=== PATIENT | female | born 1985 | race Caucasian/White ===

== ENCOUNTER 2016-04-12 12:39 | Emergency (ER) | payer MEDICAID ==
[2016-04-12] MEDS ORDERED: ACETAMINOPHEN 325 MG TABLET PO ONE (12:58)
--- NOTE | 2016-04-12 13:00 | ER Document Report ---
ED Medical Screen (RME) - General Stated Complaint: ABDOMINAL PAIN Time seen by provider: 12:56 Mode of Arrival: Ambulatory Information source: Patient Notes: 30-year-old female complaining of low pelvic and back pain since March 16 when she got a very heavy period which has persisted. She has a history of PCO last and has not had menses 6 months prior to February. Dyspareunia 4 days ago. TRAVEL OUTSIDE OF THE [place] IN LAST 30 DAYS: No - Related Data Allergies/Adverse Reactions: No Known Allergies Allergy (Verified 04/12/16 12:55) Past Medical History Psychiatric Medical History: Reports: Hx Anxiety, Hx Attention Deficit Hyperactivity Disorder, Hx Bipolar Disorder, Hx Depression, Hx Post Traumatic Stress Disorder - Immunizations Immunizations up to date: Yes Hx Diphtheria, Pertussis, Tetanus Vaccination: Yes
[2016-04-12 13:53] LABS: ABSOLUTE BASOPHILS # (AUTO) 0.1 10^3/uL (0.0-0.2); ABSOLUTE EOSINOPHILS # (AUTO) 0.1 10^3/uL (0.0-0.6); ABSOLUTE LYMPHOCYTES (AUTO) 1.9 10^3/uL (0.5-4.7); ABSOLUTE MONOCYTES (AUTO) 0.6 10^3/uL (0.1-1.4); ABSOLUTE NEUT (AUTO) 4.1 10^3/uL (1.7-8.2); BASOPHILS % (AUTO) 1.2 % (0-2); EOSINOPHILS % (AUTO) 1.8 % (0-6); HEMATOCRIT 46.4 % (36.0-47.0); HEMOGLOBIN 15.6 g/dL (12.0-15.5); HGB HCT DIFFERENCE 0.4; LYMPHOCYTES % (AUTO) 28.2 % (13-45); MEAN CORPUSCULAR HEMOGLOBIN 32.2 pg (27.0-33.4); MEAN CORPUSCULAR HGB CONC 33.6 g/dL (32.0-36.0); MEAN CORPUSCULAR VOLUME 96 fl (80-97); MONOCYTES % (AUTO) 8.3 % (3-13); RED BLOOD COUNT 4.84 10^6/uL (3.72-5.28); RED CELL DISTRIBUTION WIDTH 13.3 % (11.5-14.0); SEGMENTED NEUTROPHILS % (AUTO) 60.5 % (42-78); WHITE BLOOD COUNT 6.7 10^3/uL (4.0-10.5)
[2016-04-12 14:02] LABS: ALANINE AMINOTRANSFERASE 46 U/L (9-52); ALBUMIN 4.7 g/dL (3.5-5.0); ALKALINE PHOSPHATASE 73 U/L (38-126); ANION GAP 12 (5-19); ASPARTATE AMINO TRANSFERASE 25 U/L (14-36); BILIRUBIN,TOTAL 0.8 mg/dL (0.2-1.3); BLOOD UREA NITROGEN 11 mg/dL (7-20); CALCIUM 9.6 mg/dL (8.4-10.2); CARBON DIOXIDE 27 mmol/L (22-30); CHLORIDE 103 mmol/L (98-107); CREATININE RESULT 0.71 mg/dL (0.52-1.25); GLUCOSE 83 mg/dL (75-110); POTASSIUM 4.3 mmol/L (3.6-5.0); SODIUM 142.2 mmol/L (137-145); TOTAL PROTEIN 7.7 g/dL (6.3-8.2)
[2016-04-12 14:17] LABS: APPEARANCE,URINE SLIGHTLY-CLOUDY; BILIRUBIN,URINE NEGATIVE (NEGATIVE); GLUCOSE, URINE NEGATIVE (NEGATIVE); KETONES,URINE NEGATIVE (NEGATIVE); LEUKOCYTE ESTERASE,URINE NEGATIVE (NEGATIVE); NITRITE,URINE NEGATIVE (NEGATIVE); PROTEIN,URINE NEGATIVE (NEGATIVE); URINE SPECIFIC GRAVITY 1.021; UROBILINOGEN,URINE NEGATIVE mg/dL (<2.0)
--- NOTE | 2016-04-12 16:59 | ER Document Report ---
ED General - General Chief Complaint: Abdominal Pain Stated Complaint: ABDOMINAL PAIN Mode of Arrival: Ambulatory TRAVEL OUTSIDE OF THE [place] IN LAST 30 DAYS: No - HPI Patient complains to provider of: abdominal cramping pelvic pain Notes: Patient coming in for diffuse dominant pain ongoing for the last week vaginal bleeding ongoing since since February and pelvic pain. Patient states she has a history of PCO S states she's to be on metformin however has not followed up with any [employer] since moving here [place] therefore is not taking any medication otherwise has no other past medical history. Patient states pain after sex 4 days ago states pain in her pelvis continues. Denies fevers chills nausea vomiting diarrhea. Denies any trauma - Related Data Allergies/Adverse Reactions: No Known Allergies Allergy (Verified 04/12/16 12:55) Past Medical History - General Information source: Patient - Social History Smoking Status: Never Smoker Chew tobacco use (# tins/day): No Frequency of alcohol use: None Drug Abuse: None Family History: Reviewed & Not Pertinent, Other Patient has suicidal ideation: No Patient has homicidal ideation: No Renal/ Medical History: Denies: Hx Peritoneal Dialysis Psychiatric Medical History: Reports: Hx Anxiety, Hx Attention Deficit Hyperactivity Disorder, Hx Bipolar Disorder, Hx Depression, Hx Post Traumatic Stress Disorder - Immunizations Immunizations up to date: Yes Hx Diphtheria, Pertussis, Tetanus Vaccination: Yes Review of Systems - Review of Systems Constitutional: No symptoms reported EENT: No symptoms reported Cardiovascular: No symptoms reported Respiratory: No symptoms reported Gastrointestinal: Abdominal pain, Nausea, Vomiting Genitourinary: No symptoms reported Female Genitourinary: Vaginal bleeding Musculoskeletal: No symptoms reported Skin: No symptoms reported Hematologic/Lymphatic: No symptoms reported Neurological/Psychological: No symptoms reported -: Yes All other systems reviewed and negative Physical Exam - Vital signs Vitals: Temp Pulse Resp BP Pulse Ox 97.9 F 66 18 113/82 99 04/12/16 17:15 04/12/16 17:15 04/12/16 17:15 04/12/16 17:15 04/12/16 17:15 Interpretation: Normal - General General appearance: Appears well, Alert - HEENT Head: Normocephalic, Atraumatic Eyes: Normal Pupils: PERRL - Respiratory Respiratory status: No respiratory distress Chest status: Nontender Breath sounds: Normal Chest palpation: Normal - Cardiovascular Rhythm: Regular Heart sounds: Normal auscultation Murmur: No - Abdominal Inspection: Normal Distension: No distension Bowel sounds: Normal Tenderness: Nontender Organomegaly: No organomegaly - Back Back: Normal, Nontender - Extremities General upper extremity: Normal inspection, Nontender, Normal color, Normal ROM , Normal temperature General lower extremity: Normal inspection, Nontender, Normal color, Normal ROM , Normal temperature, Normal weight bearing. No: Negar's sign - Neurological Neuro grossly intact: Yes Cognition: Normal Orientation: AAOx4 [employer] Coma Scale Eye Opening: Spontaneous [employer] Coma Scale Verbal: Oriented [place] Coma Scale Motor: Obeys Commands [employer] Coma Scale Total: 15 Speech: Normal Motor strength normal: LUE, RUE, LLE, RLE Sensory: Normal - Psychological Associated symptoms: Normal affect, Normal mood - Skin Skin Temperature: Warm Skin Moisture: Dry Skin Color: Normal Course - Re-evaluation Re-evalutation: 04/12/16 22:27 Patient's ultrasound showed signs of PCO S. No other significant pathology. Lab work showed no significant pathology hemoglobin concentration more likely due to dehydration. Patient will be discharged home recommend follow-up with OB /[facility].The patient presents with abdominal pain without signs of peritonitis or other life-threatening or serious etiology. The patient appears stable for discharge and has been instructed to return immediately if the symptoms worsen in any way, or in 8-12hr if not improved for re-evaluation. The patient has been instructed to return if the symptoms worsen or change in any way.. 04/12/16 22:28 - Vital Signs Vital signs: Temp Pulse Resp BP Pulse Ox 97.9 F 66 18 113/82 99 04/12/16 17:15 04/12/16 17:15 04/12/16 17:15 04/12/16 17:15 04/12/16 17:15 - Laboratory Result Diagrams: 04/12/16 13:25 04/12/16 13:25 Laboratory results interpreted by me: 04/12/16 04/12/16 13:25 13:40 Hgb 15.6 H Urine Blood MODERATE H Discharge - Discharge Clinical Impression: dysfunctional vaginal bleeding, Dehydration Abdominal pain Qualifiers: Abdominal location: generalized Qualified Code(s): R10.84 - Generalized abdominal pain Condition: Good Disposition: HOME, SELF-CARE Instructions: Abdominal Pain ([facility]), Dehydration ([facility]), Dysfunctional Uterine Bleeding ([facility]), Ob-[employer] [facility] Additional Instructions: may take medication for pain as prescribed. Return to the ER symptoms worsen. Your ultrasound labwork today are negative for any critical etiology there is some mild signs of dehydration please drink plenty of water or fluids containing a electrolytes Prescriptions: Dicyclomine HCl [Bentyl 20 mg Tablet] 20 mg PO QID #20 tablet Ondansetron [Zofran Odt 4 mg Tablet] 1 - 2 tab PO Q4H PRN #15 tab.rapdis PRN Reason: For Nausea/Vomiting Referrals: MARY KATE GARIBAY DO [Primary Care Provider] - Follow up in 3-5 days
[2016-04-12 17:29] VITALS: BP 113/82
== END 2016-04-12 17:15 | disposition home or self-care (01) ==
LOC: ER 12:39
DX: N93.8 Other specified abnormal uterine and vaginal bleeding (principal); E86.0 Dehydration; R10.84 Generalized abdominal pain; R10.2 Pelvic and perineal pain
CPT/HCPCS: 99284; 36415; 87086; 84703; 85025; 80053; 81001; 76830; 93976; J3490

== ENCOUNTER 2016-09-26 19:31 | Emergency (ER) | payer MEDICAID ==
[2016-09-26 20:58] LABS: APPEARANCE,URINE CLOUDY; BILIRUBIN,URINE NEGATIVE (NEGATIVE); GLUCOSE, URINE NEGATIVE (NEGATIVE); KETONES,URINE NEGATIVE (NEGATIVE); LEUKOCYTE ESTERASE,URINE MODERATE (NEGATIVE); NITRITE,URINE NEGATIVE (NEGATIVE); PROTEIN,URINE NEGATIVE (NEGATIVE); URINE SPECIFIC GRAVITY 1.025; UROBILINOGEN,URINE NEGATIVE mg/dL (<2.0)
[2016-09-26 21:05] LABS: ABSOLUTE BASOPHILS # (AUTO) 0.1 10^3/uL (0.0-0.2); ABSOLUTE EOSINOPHILS # (AUTO) 0.1 10^3/uL (0.0-0.6); ABSOLUTE LYMPHOCYTES (AUTO) 2.2 10^3/uL (0.5-4.7); ABSOLUTE MONOCYTES (AUTO) 0.9 10^3/uL (0.1-1.4); BASOPHILS % (AUTO) 0.8 % (0-2); EOSINOPHILS % (AUTO) 1.7 % (0-6); HEMATOCRIT 42.4 % (36.0-47.0); HEMOGLOBIN 14.5 g/dL (12.0-15.5); HGB HCT DIFFERENCE 1.1; LYMPHOCYTES % (AUTO) 26.6 % (13-45); MEAN CORPUSCULAR HEMOGLOBIN 31.8 pg (27.0-33.4); MEAN CORPUSCULAR HGB CONC 34.1 g/dL (32.0-36.0); MEAN CORPUSCULAR VOLUME 93 fl (80-97); MONOCYTES % (AUTO) 11.3 % (3-13); RED BLOOD COUNT 4.55 10^6/uL (3.72-5.28); RED CELL DISTRIBUTION WIDTH 13.2 % (11.5-14.0); SEGMENTED NEUTROPHILS % (AUTO) 59.6 % (42-78); WHITE BLOOD COUNT 8.4 10^3/uL (4.0-10.5)
[2016-09-26 21:09] LABS: ALANINE AMINOTRANSFERASE 45 U/L (9-52); ALBUMIN 4.2 g/dL (3.5-5.0); ALKALINE PHOSPHATASE 57 U/L (38-126); ANION GAP 12 (5-19); ASPARTATE AMINO TRANSFERASE 26 U/L (14-36); BILIRUBIN,DIRECT 0.3 mg/dL (0.0-0.4); BILIRUBIN,TOTAL 0.7 mg/dL (0.2-1.3); BLOOD UREA NITROGEN 12 mg/dL (7-20); CALCIUM 9.3 mg/dL (8.4-10.2); CARBON DIOXIDE 22 mmol/L (22-30); CHLORIDE 106 mmol/L (98-107); CREATININE RESULT 0.81 mg/dL (0.52-1.25); GLUCOSE 102 mg/dL (75-110); POTASSIUM 4.2 mmol/L (3.6-5.0); SODIUM 140.4 mmol/L (137-145); TOTAL PROTEIN 7.3 g/dL (6.3-8.2)
[2016-09-26 21:10] LABS: URINE BARBITURATES SCREEN NEGATIVE; URINE METHADONE SCREEN NEGATIVE; URINE OPIATES LOW NEGATIVE; URINE PHENCYCLIDINE SCREEN NEGATIVE
[2016-09-26 21:24] LABS: ALCOHOL < 10 mg/dL (NONE DETECTED)
--- NOTE | 2016-09-26 21:35 | ER Document Report ---
ED General - General Chief Complaint: Suicidal Ideation Stated Complaint: POSSIBLY UNSTABLE MENTAL STATE Time Seen by Provider: 09/26/16 20:16 Notes: Patient is a 31-year-old female multiple prior evaluation this emergency department for suicidality and depression who presents today with suicidal ideation with a plan to cut herself. Patient states that she has had increased stressors in her life recently which have triggered her episode today. She has been off all her medications and feels this may also be contributing to her symptoms. Nothing improves her symptoms. States this feels similar to when she is not suicidal in the past. She was referred here by [facility]. She did make an attempt to harm herself today with self infection of lacerations to her left forearm. TRAVEL OUTSIDE OF THE [place] IN LAST 30 DAYS: No - Related Data Allergies/Adverse Reactions: No Known Allergies Allergy (Verified 04/12/16 12:55) Past Medical History - General Information source: Patient - Social History Smoking Status: Never Smoker Frequency of alcohol use: None Drug Abuse: None Lives with: Family Family History: Reviewed & Not Pertinent, Other Patient has suicidal ideation: Yes Patient has homicidal ideation: No Renal/ Medical History: Denies: Hx Peritoneal Dialysis Psychiatric Medical History: Reports: Hx Anxiety, Hx Attention Deficit Hyperactivity Disorder, Hx Bipolar Disorder, Hx Depression, Hx Post Traumatic Stress Disorder - Immunizations Immunizations up to date: Yes Hx Diphtheria, Pertussis, Tetanus Vaccination: Yes Review of Systems - Review of Systems Notes: Constitutional: Negative for fever. HENT: Negative for sore throat. Eyes: Negative for visual changes. Cardiovascular: Negative for chest pain. Respiratory: Negative for shortness of breath. Gastrointestinal: Negative for abdominal pain, vomiting or diarrhea. Genitourinary: Negative for dysuria. Musculoskeletal: Negative for back pain. Skin: Negative for rash. Neurological: Negative for headaches, weakness or numbness. 10 point ROS negative except as marked above and in HPI. Physical Exam - Vital signs Vitals: Temp Pulse Resp BP Pulse Ox 98.3 F 103 H 16 138/77 H 98 09/26/16 19:37 09/26/16 19:37 09/26/16 19:37 09/26/16 19:37 09/26/16 19:37 Interpretation: Tachycardic Notes: PHYSICAL EXAMINATION: GENERAL: Well-appearing, well-nourished and in no acute distress. HEAD: Atraumatic, normocephalic. EYES: Pupils equal round and reactive to light, extraocular movements intact, sclera anicteric, conjunctiva are normal. ENT: nares patent, oropharynx clear without exudates. Moist mucous membranes. NECK: Normal range of motion, supple without lymphadenopathy LUNGS: Breath sounds clear to auscultation bilaterally and equal. No wheezes rales or rhonchi. HEART: Regular rate and rhythm without murmurs ABDOMEN: Soft, nontender, normoactive bowel sounds. No guarding, no rebound. No masses appreciated. EXTREMITIES: Normal range of motion, no pitting or edema. No cyanosis. NEUROLOGICAL: No focal neurological deficits. Moves all extremities spontaneously and on command. PSYCH: Normal mood, normal affect. SKIN: Warm, Dry, normal turgor, several small superficial lacerations to the right forearm Course - Re-evaluation Re-evalutation: 09/26/16 21:34 Patient presents with suicidal ideation, plan to cut her wrist although self- inflicted wrist wound on the left side is very superficial, does not appear to be any degree of a serious attempt to actually kill herself. Patient reports progressively worsening depression, anxiety, feeling that her life is spiraling out of control. Patient has been seen in the emergency department repeatedly for similar presentations. She was referred by her outpatient psychiatric providers. She denies any additional acute medical complaints. Medical screening laboratories are noted to be unremarkable with exception of her urinalysis which is a contaminated specimen. She does deny dysuria that will not begin treatment at this time instead will plan to send a culture. She is otherwise medically cleared at this time for evaluation by psychiatry. I do not believe she needs involuntary commitment criteria at this time as her suicidality appears quite passive, her wrist cutting today appears to be more of a suicidal gesture than an actual attempt. - Vital Signs Vital signs: Temp Pulse Resp BP Pulse Ox 98.3 F 103 H 16 138/77 H 98 09/26/16 19:37 09/26/16 19:37 09/26/16 19:37 09/26/16 19:37 09/26/16 19:37 - Laboratory Result Diagrams: 09/26/16 20:13 09/26/16 20:13 Laboratory results interpreted by me: 09/26/16 09/26/16 20:13 20:40 Ur Leukocyte Esterase MODERATE H Salicylates < 1.0 L Acetaminophen < 10 L - EKG Interpretation by Me Additional EKG results interpreted by me: 09/27/16 02:50 Normal sinus rhythm. Rate 82. No ST elevations or depressions. QTC is 421. Discharge - Discharge Clinical Impression: Suicidal ideation Depression Qualifiers: Depression Type: major depressive disorder Major depression recurrence: recurrent Active/Remission status: remission status unspecified Qualified Code(s ): F33.9 - Major depressive disorder, recurrent, unspecified Condition: Fair Disposition: PSYCH HOSP/UNIT
--- NOTE | 2016-09-27 09:09 | EKG REPORT ---
SEVERITY:- NORMAL ECG - SINUS RHYTHM : Confirmed by: Leonel Benavides MD 27-Sep-2016 09:09:14
--- NOTE | 2016-09-27 09:51 | ER Document Report ---
Doctor's Note Notes: 09/27/16 09:49 This is a 31-year-old female that presented yesterday with depression and suicidal ideation. Currently, she is alert and oriented 3 and in no acute distress. I have discussed the case with the dust box worker evaluated the patient. The plan will be to have the patient follow-up with psychiatry on an outpatient basis. Note: The patient of some white blood cells in the urine WBCs in the urine but has not had any urinary symptoms: Will wait for results of the urine culture. 09/27/16 10:48
--- NOTE | 2016-09-27 10:35 | ER Document Report ---
ED Psych Disorder / Suicide - General Chief Complaint: Suicidal Ideation Stated Complaint: POSSIBLY UNSTABLE MENTAL STATE Time Seen by Provider: 09/26/16 20:16 TRAVEL OUTSIDE OF THE [place] IN LAST 30 DAYS: No - HPI Notes: Patient is a 31-year-old female multiple prior evaluation this emergency department for suicidality and depression who presents today with suicidal ideation with a plan to cut herself. Patient states that she has had increased stressors in her life recently which have triggered her episode today. She has been off all her medications and feels this may also be contributing to her symptoms. Patient disclosed that her friend brought her into the emergency department. Patient disclosed " I slit my wrist and was having a lot of stress... I had an emotional breakdown with suicidal thoughts." Clinician notes patient has bandage on her wrist; physician report disclosed self-inflicted wrist wound on the left side is very superficial, does not appear to be any degree of a serious attempt to actually kill herself. Patient continued to state that she used to be with [facility] after she got out of the hospital and had 3 months of medication; however, has been not taking medication the last 2-3 months. She continued to state she felt her symptoms are worse so she reached out to "her commercial sales representative" and ended up going to [facility] yesterday. [place] she was [place] the provider thought she needed to come to the emergency department to have her wrist looked at and felt she was not stable to go home. Patient continued to state that she does have a medication appointment in 2 weeks. Patient states she has been inpatient psychiatric treatment approximately 4 times with the last one being up about 1 year ago. She continued to state that she has been having suicidal thoughts which were of "thinking of overdosing." Patient states that she does have a history of cutting and that "if I would kill myself it would not be by cutting." Clinician notes dated her plan for suicide when coming into the emergency department with by cutting. Patient is alert and orientated to person place time and circumstance. Mood is euthymic with congruent affect. Patient endorses suicidal ideation however discloses conflicting reports on plan. Patient demonstrated suicidal gesture with superficial cut on wrist. Patient denies homicidal ideation. Patient denies auditory and visual hallucinations; patient is not demonstrating any behavior congruent with internal stimuli. No delusions are noted. Thought processes organized and linear. Conversational speech was within normal rate, tone and prosody. Eye contact was well-maintained. Intellectual abilities appear to be within average range. Attention and concentration are fair. Insight, judgment, impulse control appear to be poor historically. 296.80 (F31.9) unspecified bipolar and related disorder per history provided by patient 301.83 (F60.3) borderline personality disorder per history provided by patient Impression\\plan: Patient is considered psychiatrically clear for discharge. Patient does not meet IVC criteria per [place] GS 122C. Patient discloses suicidal ideation however appears to be passive; patient is providing conflicting plans to different [facility] staff. Patient is demonstrating behavior that is congruent with cluster B traits that supports patient's disclosure of previous diagnosis of borderline personality disorder. Recommended to continue outpatient mental health treatment through [facility]. Dr. Rose was consulted on the care and management of this patient; attending physician is agreement with recommendations and disposition. - Related Data Allergies/Adverse Reactions: No Known Allergies Allergy (Verified 04/12/16 12:55) Past Medical History - General Information source: Patient - Social History Smoking Status: Never Smoker Frequency of alcohol use: None Drug Abuse: None Lives with: Family Family History: Reviewed & Not Pertinent, Other Patient has suicidal ideation: Yes Patient has homicidal ideation: No Renal/ Medical History: Denies: Hx Peritoneal Dialysis Psychiatric Medical History: Reports: Hx Anxiety, Hx Attention Deficit Hyperactivity Disorder, Hx Bipolar Disorder, Hx Depression, Hx Post Traumatic Stress Disorder - Immunizations Immunizations up to date: Yes Hx Diphtheria, Pertussis, Tetanus Vaccination: Yes Physical Exam - Vital signs Vitals: Temp Pulse Resp BP Pulse Ox 98.3 F 103 H 16 138/77 H 98 09/26/16 19:37 09/26/16 19:37 09/26/16 19:37 09/26/16 19:37 09/26/16 19:37 Course - Vital Signs Vital signs: Temp Pulse Resp BP Pulse Ox 98.3 F 63 18 111/59 L 98 09/26/16 19:38 09/27/16 06:32 09/27/16 06:32 09/27/16 06:32 09/27/16 06:32 - Laboratory Result Diagrams: 09/26/16 20:13 09/26/16 20:13 Laboratory results interpreted by me: 09/26/16 09/26/16 20:13 20:40 Ur Leukocyte Esterase MODERATE H Salicylates < 1.0 L Acetaminophen < 10 L Discharge - Discharge Clinical Impression: Suicidal ideation, Borderline personality disorder Depression Qualifiers: Depression Type: major depressive disorder Major depression recurrence: recurrent Active/Remission status: remission status unspecified Qualified Code(s ): F33.9 - Major depressive disorder, recurrent, unspecified Bipolar disorder Qualifiers: Current bipolar episode type: depressed Current episode severity: unspecified Condition: Stable Disposition: HOME, SELF-CARE Additional Instructions: DEPRESSION: Your evaluation reveals that you have mental depression. While symptoms may be vague, they often include disturbance of sleep, fatigue, loss of appetite , and general loss of interest in life. While depression may be a side effect of drugs, or a reaction to a major change in your life, many cases have no known cause. If depression is acute, and related to a major loss in your life, you can expect it to clear completely with time. If you have been depressed a long time , are prone to repeated bouts of depression or low mood, or have been thinking of suicide, get help. Depression can be treated with anti-depressant medication and counselling. Long-term depression will often take a few weeks to clear, even with appropriate medication. Follow-up care is important. SUICIDAL IDEATION: Suicidal ideation is a common medical term for thoughts about suicide, which may be as detailed as a formulated plan, without the suicidal act itself. Although most people who undergo suicidal ideation do not commit suicide, some go on to make suicide attempts. The range of suicidal ideation varies greatly from fleeting to detailed planning, role playing, and unsuccessful attempts. While thoughts about suicide are common, most people do not carry out serious actions to commit suicide. Based upon your evaluation and discussion with you, we do not believe you are currently at risk to act upon your thoughts of suicide. You have agreed to return to the Emergency Department, at any time , if you feel inclined to act upon your suicidal thoughts. FOLLOW-UP CARE: Please follow-up with [facility] [address] for your outpatient mental health treatment on 09/29/2016. if you experience worsening or a significant change in your symptoms, notify the physician immediately or return to the Emergency Department at any time for re-evaluation. Referrals: [facility] [address] [Outside] - 09/29/16 8:00 am
[2016-09-27 11:26] VITALS: BP 106/57
== END 2016-09-27 11:20 | disposition home or self-care (01) ==
LOC: ER 19:31
DX: R45.851 Suicidal ideations (principal); F33.9 Major depressive disorder, recurrent, unspecified; F60.3 Borderline personality disorder
CPT/HCPCS: 36415; 80053; 80307; 81001; 84703; 85025; 87086; 93005; 93010; 99285

== ENCOUNTER 2016-09-28 03:13 | Emergency (ER) | payer MEDICAID ==
[2016-09-28] MEDS ORDERED: LIDOCAINE 1% INJ-PF (10 MG/ML) 30 ML SDV INJ ONE (03:43)
[2016-09-28] MEDS ORDERED: DIPH/PERTUSS(ACELL)/TETANUS VAC/PF 0.5 ML SYR (>=10YO) IM ONE (03:45)
--- NOTE | 2016-09-28 03:48 | ER Document Report ---
ED General - General Chief Complaint: Laceration Stated Complaint: CHEST/WRIST LACERATIONS Time Seen by Provider: 09/28/16 03:40 Notes: 31-year-old female who is brought here from [facility] due to laceration to the left breast and left wrist. She said the one on her left wrist was initially done 2 days ago and that she could again last night. The one to the left breast is from last night approximately 8 hours ago. She has no other complaints at this time. She is currently under the supervision of the [facility] staff who is in the room with her. She is unsure if she has had a tetanus shot in the last 5 years. TRAVEL OUTSIDE OF THE [place] IN LAST 30 DAYS: No - Related Data Allergies/Adverse Reactions: No Known Allergies Allergy (Verified 04/12/16 12:55) Past Medical History - Social History Smoking Status: Never Smoker Frequency of alcohol use: None Drug Abuse: None Family History: Reviewed & Not Pertinent, Other Patient has suicidal ideation: No Patient has homicidal ideation: No Renal/ Medical History: Denies: Hx Peritoneal Dialysis Psychiatric Medical History: Reports: Hx Anxiety, Hx Attention Deficit Hyperactivity Disorder, Hx Bipolar Disorder, Hx Depression, Hx Post Traumatic Stress Disorder - Immunizations Immunizations up to date: Yes Hx Diphtheria, Pertussis, Tetanus Vaccination: Yes Review of Systems - Review of Systems Notes: My Normal Review Basic REVIEW OF SYSTEMS: CONSTITUTIONAL : Denies fever, chills, or sweats. Denies recent illness. RESPIRATORY: Denies cough, cold, or chest congestion. Denies shortness of breath, difficulty breathing, or wheezing. MUSCULOSKELETAL: Denies neck or back pain or joint pain or swelling. SKIN: laceration over left breast and left wrist. HEMATOLOGIC : Denies easy bruising or bleeding. NEUROLOGICAL: Denies altered mental status or loss of consciousness. Denies headache. Denies weakness or paralysis or loss of use of either side. Denies problems with gait or speech. Denies sensory or motor loss. PSYCHIATRIC: depression ALL OTHER SYSTEMS REVIEWED AND NEGATIVE. Physical Exam - Vital signs Vitals: Temp Pulse Resp BP Pulse Ox 98.2 F 85 16 132/80 H 97 09/28/16 03:20 09/28/16 03:20 09/28/16 03:20 09/28/16 03:20 09/28/16 03:20 - Notes Notes: General Appearance: Well nourished, alert, cooperative, no acute distress, no obvious discomfort. Vitals: reviewed, See vital signs table. Head: no swelling or tenderness to the head Eyes: PERRL, EOMI, Conjuctiva clear Lungs: No wheezing, No rales, No rhonci, No accessory muscle use, good air exchange bilaterally. Heart: Normal rate, Regular rythm, No murmur, no rub Skin: Patient has what appears to be a greater than 24-hour old laceration to left wrist. No active bleeding. It does not require sutures at this time. Is not significantly gaping and does not appear to be very deep. Laceration appears just barely go through the dermis. Patient has a second laceration over the left breast that is approximately 6 cm in length. This does go through the dermis. There is no active bleeding at this time. Neuro: speech clear, oriented x 3, normal affect, responds appropriately to questions. Course - Vital Signs Vital signs: Temp Pulse Resp BP Pulse Ox 98.0 F 82 20 126/84 H 99 09/28/16 05:47 09/28/16 05:47 09/28/16 05:47 09/28/16 05:47 09/28/16 05:47 - Transfer of Care Notes: 09/28/16 06:26 The laceration on the left wrist did not require sutures. The laceration on the left breast did require sutures. I did do one running subcutaneous stitch that was reinforced with Steri-Strips. This gave good skin edge approximation. I informed the patient she must return to ER immediately if she has any redness or swelling or signs of infection. Patient agrees with plan and will be discharged home. Dictation of this chart was performed using voice recognition software; therefore, there may be some unintended grammatical errors. Procedures - Laceration/Wound Repair left breast Wound length (cm): 6 Wound's Depth, Shape: Linear Laceration pre-procedure: Other - hibiclens Anesthetic type: 1% Lidocaine w/epi Volume Anesthetic (mLs): 2 Wound explored: Clean Wound Repaired With: Sutures, Steri-strips Suture Size/Type: 5:0, Vicryl Number of Sutures: 1 - running suture Complications: No Discharge - Discharge Clinical Impression: Laceration Condition: Good Disposition: HOME, SELF-CARE Additional Instructions: I closed the laceration on your left breast with dissolvable sutures. These should not need to be removed unless your body rejects the sutures and they start to push up through the wound. Please return to the ER if you have any redness or swelling to the wounds or have concerns for infection.
[2016-09-28] MEDS ORDERED: POTASSI CL 20 MEQ/NS 1L 1,000 ML IV PRN (05:41)
[2016-09-28] MEDS ORDERED: ONDANSETRON HCL INJ/PF 4 MG/2 ML SDV IV PRN (05:41)
[2016-09-28] MEDS ORDERED: MORPHINE SULFATE 10 MG/ML INJ IV PRN ×2 (05:41)
[2016-09-28 05:48] VITALS: BP 126/84
[2016-09-28] MEDS ORDERED: ENOXAPARIN SODIUM INJ 40 MG/0.4 ML DISP.SYRIN SUBCUT SCH (10:00)
== END 2016-09-28 05:47 | disposition home or self-care (01) ==
LOC: ER 03:13
PROC: 0HQUXZZ (ICD-10-PCS; principal; 2016-09-28)
DX: S21.012A Laceration without foreign body of left breast, initial encounter (principal); S61.512A Laceration without foreign body of left wrist, initial encounter; X58.XXXA Exposure to other specified factors, initial encounter
CPT/HCPCS: 99282

== ENCOUNTER 2017-03-27 20:06 | Emergency (ER) | payer MEDICAID ==
[2017-03-27] MEDS ORDERED: NAPROXEN 250 MG TABLET PO ONE (22:11)
[2017-03-27] MEDS ORDERED: DIAZEPAM 5 MG TABLET PO ONE (22:11)
[2017-03-27] MEDS ORDERED: LIDOCAINE 5% (700 MG) TRANSDERMAL ADH..PATCH TP ONE (22:11)
--- NOTE | 2017-03-27 22:11 | ER Document Report ---
ED Neck/Back Problem - General Chief Complaint: Back Pain Stated Complaint: BACK PAIN Time Seen by Provider: 03/27/17 22:07 Notes: The patient is a 31-year-old female, past medical history chronic back pain from bulging disks, anxiety, PCOS, presents after she misstepped earlier today and felt her back pain return and spasm up. She has tried heating pads and Tylenol earlier today without much relief of her symptoms. Patient denies change in bowel or bladder, saddle anesthesia, difficulty walking, numbness, tingling, hematuria, dysuria or abdominal pain. TRAVEL OUTSIDE OF THE [place] IN LAST 30 DAYS: No - Related Data Allergies/Adverse Reactions: No Known Allergies Allergy (Verified 04/12/16 12:55) Past Medical History - General Information source: Patient - Social History Smoking Status: Never Smoker Chew tobacco use (# tins/day): No Frequency of alcohol use: None Drug Abuse: None Family History: Reviewed & Not Pertinent, Other Patient has suicidal ideation: No Patient has homicidal ideation: No Renal/ Medical History: Denies: Hx Peritoneal Dialysis Psychiatric Medical History: Reports: Hx Anxiety, Hx Attention Deficit Hyperactivity Disorder, Hx Bipolar Disorder, Hx Depression, Hx Post Traumatic Stress Disorder - Immunizations Immunizations up to date: Yes Hx Diphtheria, Pertussis, Tetanus Vaccination: Yes Review of Systems - Review of Systems Notes: REVIEW OF SYSTEMS: CONSTITUTIONAL: -fevers, -chills EENT: -eye pain, -difficulty swallowing, -nasal congestion CARDIOVASCULAR: -chest pain, -syncope. RESPIRATORY: -cough, -SOB GASTROINTESTINAL: -abdominal pain, -nausea, -vomiting, -diarrhea GENITOURINARY: -dysuria, -hematuria MUSCULOSKELETAL: +back pain, -neck pain SKIN: -rash or skin lesions. HEMATOLOGIC: -easy bruising or bleeding. LYMPHATIC: -swollen, enlarged glands. NEUROLOGICAL: -altered mental status or loss of consciousness, -headache, - neurologic symptoms PSYCHIATRIC: -anxiety, -depression. ALL OTHER SYSTEMS REVIEWED AND NEGATIVE. Physical Exam - Vital signs Vitals: Temp Pulse Resp BP Pulse Ox 98.3 F 113 H 22 H 131/93 H 95 03/27/17 20:22 03/27/17 20:22 03/27/17 20:22 03/27/17 20:22 03/27/17 20:22 - Notes Notes: PHYSICAL EXAMINATION: GENERAL: Appears anxious, hyperventilates but slows down her breathing when redirected. HEAD: Atraumatic, normocephalic. EYES: Pupils equal round and reactive to light, extraocular movements intact, sclera anicteric, conjunctiva are normal. ENT: nares patent, oropharynx clear without exudates. Moist mucous membranes. NECK: Normal range of motion, supple without lymphadenopathy LUNGS: Breath sounds clear to auscultation bilaterally and equal. No wheezes rales or rhonchi. HEART: Mild tachycardia. ABDOMEN: Soft, nontender, normoactive bowel sounds. No guarding, no rebound. No masses appreciated. EXTREMITIES: Normal range of motion, no pitting or edema. No cyanosis. BACK: Lumbar parapsinal tenderness and spasming of her lumbar paraspinal muscles. No midline tenderness. NEUROLOGICAL: Cranial nerves grossly intact. Normal speech, normal gait. Normal sensory and motor exams. PSYCH: Very anxious. SKIN: Warm, Dry, normal turgor, no rashes or lesions noted. Course - Re-evaluation Re-evalutation: Patient with an acute exacerbation of her chronic low back pain that is worse on the right. She appears very anxious and begins to hyperventilate but will stop when I ask her to stop. She has no red flag signs for low back pain at this time. After Lidoderm patch, anti-inflammatories and muscle relaxers, she feels much better. Her mild tachycardia is most likely from the pain and anxiety. She has no history of IVDA or fevers to suggest an epidural abscess and no urinary symptoms. She just had a period. Instructed her to follow-up with her primary care physician for further evaluation and treatment. - Vital Signs Vital signs: Temp Pulse Resp BP Pulse Ox 98.3 F 113 H 22 H 131/93 H 95 03/27/17 20:22 03/27/17 20:22 03/27/17 20:22 03/27/17 20:22 03/27/17 20:22 Discharge - Discharge Clinical Impression: Back muscle spasm Condition: Stable Disposition: HOME, SELF-CARE Additional Instructions: LOW BACK PAIN: Three out of every four people will have an episode of disabling back pain during their lifetime. Most commonly the pain is due to straining of the muscles and ligaments in the low back. Usual treatment includes: (1) Rest on a firm surface. Avoid lying on your stomach. (2) Ice pack the painful area. After a few days, gentle heat may be used intermittently to relax the area, or ice packs can be continued. (3) Medication may be needed -- muscle relaxers and antiinflammatory medicines are commonly used. (4) As the back improves, exercises are prescribed to strengthen the back and abdominal muscles. Your doctor will advise you on the proper care for your back at each stage in your recovery. You may be better in a few days -- or healing may take several weeks. If new symptoms of a "herniated disc" (radiation of pain, numbness, or tingling down the back of the leg or weakness in the leg) occur, you should be re-examined. Further testing may be necessary. MUSCLE RELAXERS: Muscle relaxing medications are usually prescribed for acute muscle spasm or injury to the neck and back. They are often combined with antiinflammatory pain medication for increased relief. You may stop the muscle relaxer when the pain and stiffness have improved. Start the medication again if spasms recur. Muscle relaxers may cause drowsiness, especially with the first dose. Do not operate machinery or drive while under the effects of the medication. Most muscle relaxers last up to 24 hours. Do not combine the medication with alcohol. ICE PACKS: Apply ice packs frequently against the painful area. Many different schedules are recommended, such as "20 minutes on, 20 minutes off" or "one hour ice, two hours rest." If you need to work, you may need to go longer between ice treatments. You should plan to have the area ice packed AT LEAST one fourth of the time. The ice should be applied over the wrap, tape, or splint, or over a layer of cloth -- not directly against the skin. Some ice bags have a built-in cloth and can be put directly on the skin. WARM PACKS: After approximately two days, apply gentle heat (such as a heating pad or hot water bottle) for about 20 to 30 minutes about every two hours -- at least four times daily. Warmth and elevation will help you make a more rapid recovery , and will ease the pain considerably. Do not use HOT heat, and never apply heat for longer than 30 minutes. The continuous heat can invisibly damage skin and muscles -- even when no burn is seen on the surface. Damaged muscles can make you MORE sore. FOLLOW-UP CARE: If you have been referred to a physician for follow-up care, call the physician s office for an appointment as you were instructed or within the next two days. If you experience worsening or a significant change in your symptoms, notify the physician immediately or return to the Emergency Department at any time for re-evaluation. Prescriptions: Lidocaine [Lidoderm 5% (700 mg) Transdermal Patch] 1 patch TP DAILY #10 adh..patch Methocarbamol [Robaxin 500 mg Tablet] 500 mg PO Q4H PRN #15 tablet PRN Reason: Naproxen [Naprosyn 250 mg Tablet] 500 mg PO Q12H PRN #30 tablet PRN Reason: Forms: Elevated Blood Pressure Referrals: ZOILA SAHA MD [Primary Care Provider] - Follow up as needed
[2017-03-27] MEDS ORDERED: DIAZEPAM INJ 10 MG/2 ML DISP.SYRIN IM ONE (22:59)
[2017-03-27 23:52] VITALS: BP 117/83
== END 2017-03-27 23:52 | disposition home or self-care (01) ==
LOC: ER 20:06
DX: M62.830 Muscle spasm of back (principal); G89.29 Other chronic pain; M54.5 Low back pain
CPT/HCPCS: 99283; J3360; J3490 ×3

== ENCOUNTER → 2018-10-15 | Outpatient (CLI) | payer MEDICAID ==
[2018-10-15 11:50] LABS: ABSOLUTE BASOPHILS # (AUTO) 0.1 10^3/uL (0.0-0.2); ABSOLUTE EOSINOPHILS # (AUTO) 0.4 10^3/uL (0.0-0.6); ABSOLUTE LYMPHOCYTES (AUTO) 2.7 10^3/uL (0.5-4.7); ABSOLUTE NEUT (AUTO) 5.5 10^3/uL (1.7-8.2); BASOPHILS % (AUTO) 0.9 % (0-2); EOSINOPHILS % (AUTO) 4.3 % (0-6); HEMATOCRIT 45.1 % (36.0-47.0); HEMOGLOBIN 15.9 g/dL (12.0-15.5); LYMPHOCYTES % (AUTO) 27.9 % (13-45); MEAN CORPUSCULAR HEMOGLOBIN 32.9 pg (27.0-33.4); MEAN CORPUSCULAR HGB CONC 35.2 g/dL (32.0-36.0); MEAN CORPUSCULAR VOLUME 93 fl (80-97); MONOCYTES % (AUTO) 10.4 % (3-13); PLATELET COUNT 377 10^3/uL (150-450); RED BLOOD COUNT 4.83 10^6/uL (3.72-5.28); RED CELL DISTRIBUTION WIDTH 13.5 % (11.5-14.0); SEGMENTED NEUTROPHILS % (AUTO) 56.5 % (42-78); TOTAL CELLS COUNTED % (AUTO) 100 %; WHITE BLOOD COUNT 9.7 10^3/uL (4.0-10.5)
[2018-10-15 12:27] LABS: ALANINE AMINOTRANSFERASE 154 U/L (9-52); ALBUMIN 4.2 g/dL (3.5-5.0); ALKALINE PHOSPHATASE 80 U/L (38-126); ANION GAP 8 (5-19); ASPARTATE AMINO TRANSFERASE 58 U/L (14-36); BILIRUBIN,DIRECT 0.3 mg/dL (0.0-0.4); BILIRUBIN,TOTAL 0.7 mg/dL (0.2-1.3); BLOOD UREA NITROGEN 10 mg/dL (7-20); CALCIUM 9.3 mg/dL (8.4-10.2); CARBON DIOXIDE 28 mmol/L (22-30); CHLORIDE 103 mmol/L (98-107); CHOLESTEROL 271.31 mg/dL (0-200); GLUCOSE 86 mg/dL (75-110); POTASSIUM 4.8 mmol/L (3.6-5.0); TRIGLYCERIDES 304 mg/dL (<150)
[2018-10-15 12:28] LABS: FREE T4 (FREE THYROXINE) 0.97 ng/dL (0.78-2.19)
[2018-10-15 12:37] LABS: DIRECT LDL 161 mg/dL (<100)
[2018-10-15 12:42] LABS: THYROID STIMULATING HORMONE 2.56 uIU/mL (0.47-4.68); VLDL CHOLESTEROL 60.8 mg/dL (10-31)
== END ==
LOC: OD 11:10
PROVIDERS: ATTEND Physician Assistant
DX: F43.12 Post-traumatic stress disorder, chronic (principal); Z79.899 Other long term (current) drug therapy
CPT/HCPCS: 36415; 80053; 80061; 83036; 84439; 84443; 85025

== ENCOUNTER 2019-05-12 11:09 | Emergency (ER) | payer MEDICAID ==
[2019-05-12 11:34] VITALS: BP 148/85
[2019-05-12] MEDS ORDERED: ACETAMINOPHEN 325 MG TABLET PO ONE (12:01)
--- NOTE | 2019-05-12 12:04 | ER Document Report ---
HPI - HPI Patient complains to provider of: bilateral wrist and hand numbness Time Seen by Provider: 05/12/19 11:50 Pain Level: 2 Notes: 33-year-old female to the emergency department who is 18 weeks with complaints of progressively worsening bilateral wrist and hand pain with associated numbness. She states that she has numbness in the tips of her fingers. She states that it seems to get a little bit worse at night. She states that she does not tie for living or use repetitive movements of her wrist. She is 18 weeks and denies any belly pain or vaginal bleeding. She is currently in between CNS's due to her Medicaid. She denies any neck pain, fevers, chills, chest pain or shortness of breath. She states that sometimes her wrists and hands hurt so badly that she has difficulty gripping things. She denies unilateral weakness. She has not tried anything for her pain or symptoms. - ROS Systems Reviewed and Negative: Yes All other systems reviewed and negative - CONSTITUTIONAL Constitutional: DENIES: Fever, Chills - EENT EENT: DENIES: Sore Throat, Ear Pain, Nasal Drainage-Clear, Congestion - NEURO Neurology: DENIES: Headache, Weakness - CARDIOVASCULAR Cardiovascular: DENIES: Chest pain - RESPIRATORY Respiratory: DENIES: Trouble Breathing, Coughing - GASTROINTESTINAL Gastrointestinal: DENIES: Abdominal Pain, Nausea, Patient vomiting, Diarrhea - REPRODUCTIVE LMP: 18 weeks Reproductive: REPORTS: : - MUSCULOSKELETAL Musculoskeletal: REPORTS: Extremity pain Notes: Bilateral hand and wrist pain with associated numbness and tingling in the arms and fingers - DERM Skin Color: Normal Skin Problems: None Past Medical History - General Information source: Patient - Social History Smoking Status: Unknown if Ever Smoked Chew tobacco use (# tins/day): No Frequency of alcohol use: None Drug Abuse: None Family History: Reviewed & Not Pertinent, Other Patient has suicidal ideation: No Patient has homicidal ideation: No Renal/ Medical History: Denies: Hx Peritoneal Dialysis Psychiatric Medical History: Reports: Hx Anxiety, Hx Attention Deficit Hyperactivity Disorder, Hx Bipolar Disorder, Hx Depression, Hx Post Traumatic Stress Disorder - Immunizations Immunizations up to date: Yes Hx Diphtheria, Pertussis, Tetanus Vaccination: Yes Vertical Provider Document - CONSTITUTIONAL Agree With Documented VS: Yes Exam Limitations: No Limitations General Appearance: WD/WN, No Apparent Distress - INFECTION CONTROL TRAVEL OUTSIDE OF THE [place] IN LAST 30 DAYS: No - HEENT HEENT: Atraumatic, Normal ENT Exam, Normocephalic, PERRLA - NECK Neck: Normal Inspection, Supple. negative: Lymphadenopathy-Left, Lymphadenopathy-Right Notes: Nontender to palpation over the midline cervical spine. There is no step-off or deformity. - RESPIRATORY Respiratory: Breath Sounds Normal. negative: Rales, Rhonchi, Wheezing - CARDIOVASCULAR Cardiovascular: Regular Rate, Regular Rhythm, No Murmur - GI/ABDOMEN Gastrointestinal: Abdomen Soft, Abdomen Non-Tender - BACK Back: Normal Inspection Notes: Nontender to palpation over the midline thoracic and lumbar spine with no step- off or deformity. Patient can ambulate without difficulty. Negative straight leg raise. - MUSCULOSKELETAL/EXTREMETIES Notes: There is mild tenderness to palpation of the bilateral wrists. Negative Tinel's sign. Positive Phalen's sign. Patient has intact sensation and cannot distinguish between dull and sharp. Radial pulses are intact and equal. Nontender to palpation over bilateral shoulders, elbows. Handgrip is 5 out of 5 bilaterally. Course - Re-evaluation Re-evalutation: Impression: Carpal tunnel syndrome in . Went ahead and splinted the patient's wrists and will send her to see an orthopedist. We will have her take Tylenol. Have encouraged her to return if she has worsening symptoms. I have given her information for follow-up with [facility]. She agrees with the plan. - Vital Signs Vital signs: Temp Pulse Resp BP Pulse Ox 98.1 F 104 H 18 148/85 H 100 05/12/19 11:33 05/12/19 11:33 05/12/19 11:33 05/12/19 11:33 05/12/19 11:33 Procedures - Immobilization Left Wrist Pre-Proc Neuro Vasc Exam: Normal Immobilizer type: Other - Velcro wrist splint Performed by: PCT Post-Proc Neuro Vasc Exam: Normal Alignment checked and good: Yes Right Wrist Pre-Proc Neuro Vasc Exam: Normal Immobilizer type: Other - velcro wrist splint Performed by: PCT Post-Proc Neuro Vasc Exam: Normal Alignment checked and good: No Discharge - Discharge Clinical Impression: Carpal tunnel syndrome during Condition: Stable Disposition: HOME, SELF-CARE Instructions: Carpal Tunnel Syndrome ([facility]) Additional Instructions: WEAR SPLINTS TO BOTH WRISTS. TAKE TYLENOL FOR PAIN. FOLLOW UP WITH ORTHOPEDIST AND OBGYN. RETURN IF WORSENING SYMPTOMS. YOU MAY TAKE 1000 mg OF TYLENOL EVERY 6 HOURS FOR PAIN. [facility] [id number] [place] [address] Referrals: YESIKA MANCUSO JR, [ACTIVE PROVISIONAL STAFF] - Follow up in 1 week
== END 2019-05-12 12:29 | disposition home or self-care (01) ==
LOC: ER 11:09
DX: O26.822 Pregnancy related peripheral neuritis, second trimester (principal); O26.892 Other specified pregnancy related conditions, second trimester; R20.0 Anesthesia of skin; M25.531 Pain in right wrist; M25.532 Pain in left wrist; M79.641 Pain in right hand; M79.642 Pain in left hand; Z3A.18 18 weeks gestation of pregnancy
CPT/HCPCS: 99283; J3490